=== PATIENT | male | born 1985 | race American Indian/Alaskan Native ===

== ENCOUNTER → 2017-12-06 | Outpatient (CLI) | payer MEDICAID ==
[~2017-12-06] MED LIST: GADOBUTROL 10 ML VIAL IVP ONE
== END ==
LOC: FIMAGING 11-09 08:21
PROVIDERS: ATTEND Internal Medicine
DX: L72.0 Epidermal cyst (principal); B20 Human immunodeficiency virus [HIV] disease; B18.2 Chronic viral hepatitis C; E55.9 Vitamin D deficiency, unspecified; G93.0 Cerebral cysts
CPT/HCPCS: A9585